=== PATIENT | female | born 1985 | race Caucasian/White ===

== ENCOUNTER 2024-01-08 23:21 | Inpatient (IN) | payer OTHER, SELFPAY ==
[2024-01-08 23:40] VITALS: BP 120/70; PULSE 89; RESP 16; TEMP 36.8; O2SAT 98
[2024-01-09 00:41] VITALS: BMI 23.5
--- NOTE | 2024-01-09 01:24 | PC.ADMIT ---
Sera Vasquez is a 38yo female, admitted to M3 unit from [facility] on CV for treatment of SI, LIN, and Unspecified mood disorder. She present to the [facility] ED after being picked up by police for loitering, found to be disorganized and paranoid.She endorses daily crack cocaine, last use prior to admission. She reports seeing and hearing voices, disorganization, paranoia, and grandiosity. She is pleasant but later became irritable and refused to answer any question during the unit admission assessment/process. She states I am very tired and want to sleep . Pt denies SI/HI/AVH, mood is depressed and affect is flat. Tox screen positive for Cocaine, Fentanyl and THC. Skin check done, release of information forms signed but could not fill my contacts list because she has no phone. Belonging inventory done, treatment plan and safety tools initiated but yet to be signed.
[2024-01-09 08:30] VITALS: BP 119/75; PULSE 81; RESP 16; TEMP 36.8; O2SAT 98
[2024-01-09 08:33] VITALS: BP 119/75; PULSE 81; RESP 16; TEMP 36.8; O2SAT 98
[2024-01-09] MEDS: clonazePAM 1 MG TABLET PO (08:48)
--- NOTE | 2024-01-09 09:34 | P.HPPS_ITS ---
HPI Date of Service: 01/09/24 Chief Complaint: mental health crisis Sources of Information: patient interviewed, chart reviewed and crisis/core team assessment reviewed HPI Subjective Notes: Crooks Warning and Conditional Voluntary Narrative: Patient is a 38 year old female with hx of PTSD, unspecified mood d/o, cocaine use d/o and opioid use d/o who was brought to ER d/t disorganized and paranoid behavior. Per crisis report, pt presented disorganized, admitted to using cocaine the morning of evaluation. Patient was picked up by police d/t loitering around a hotel and presenting paranoid and disorganized. Patient reported some paranoid thinking. She did not report SI/HI. Psychiatric provider in ER believed pt to present with substance induced psychosis. Patient reported hearing and seeing children in her exam room when no one else can. During admission assessment, Pt presents calm and cooperative. Pt stated, I guess I came to the hospital because I wanted to rest and feel at ease. I've been smoking crack heavily for the past couple months because I was able to smoke as much as I wanted to. I still want to smoke crack. I'm not addicted to it. Sometimes the Illuminati comes in me and I get lost and can't remember where I am. But psychiatric units make me sleep and remember . Pt reports using crack, heroin and marijuana often. Pt denies any other substance use currently; she reports hx of using meth for 20 years but don't do it anymore . Pt reports she is not interested in speaking to a soccer coach or going to substance abuse program. Pt reports she does not have an outpatient therapist but would like a referral; she would also like to be sent to respite after discharge. Pt stated, I was never seeing children in the room. I just feel like I want to help everyone and treat them like kids. I don't think I have 100 kids . pt denies SI/HI/VH/AH. pt denies any hx of SIB/SA. Past Psychiatric History: hx of multiple inpatient hospitalizations. Pt stated, I got to the hospital once a month to feel safe . hx of detox. psychiatrist: Nataliya Shrestha denies hx of SA/SIB. Medical Evaluation Reviewed: Yes REPLACED BY [facility] Medical History (Updated 01/09/24 @ 17:08 by Latosha Garrido NP) Chronic musculoskeletal pain ADHD Polysubstance use disorder Family History: Mother-schizophrenia Social History: homeless, single, 3 children (live in [place]), unemployed. Substance History: hx of cocaine, crack, meth, marijuana, heroin use. Trauma History: yes Diagnostics Vital Signs (24Hr): Vital Signs - 24 hr 01/08/24 23:40 01/09/24 08:33 Temperature 98.2 F 98.2 F Pulse Rate 89 81 Respiratory Rate 16 16 Blood Pressure 120/70 119/75 Pulse Oximetry 98 98 Oxygen Delivery Method Room Air Room Air BMI result Body Mass Index 23.5 Meds/Allergies Meds Home Medications ?Medication ?Instructions ?Recorded ?Confirmed ?Type buprenorphine 8 mg-naloxone 2 mg 1 film sublingual BID 01/09/24 01/09/24 History sublingual film (Suboxone) clonazepam 1 mg tablet 1 mg PO TID PRN anxiety 01/09/24 01/09/24 History diphenhydramine HCl 25 mg capsule 25 mg PO BEDTIME PRN itch 01/09/24 01/09/24 History duloxetine 60 mg capsule,delayed 60 mg PO DAILY 01/09/24 01/09/24 History release gabapentin 600 mg tablet 600 mg PO TID 01/09/24 01/09/24 History hydroxyzine pamoate 50 mg capsule 50 mg PO Q6H PRN Anxiety 01/09/24 01/09/24 History naproxen 500 mg tablet 500 mg PO BID 01/09/24 01/09/24 History nicotine 14 mg/24 hr daily 1 patch topical DAILY 01/09/24 01/09/24 History transdermal patch ondansetron HCl 4 mg tablet 4 mg PO Q8H PRN nausea 01/09/24 01/09/24 History paroxetine HCl 40 mg tablet 40 mg PO DAILY 01/09/24 01/09/24 History vits no.130-ferrous fum 1 tab PO DAILY 01/09/24 01/09/24 History 27 mg iron-folic acid 800 mcg tablet ( Vitamin) quetiapine 50 mg tablet 50 mg PO BEDTIME 01/09/24 01/09/24 History Allergies Allergies Allergy/AdvReac Type Severity Reaction Status Date / Time Unable to Assess Allergy Verified 01/08/24 23:44 Mental Status Exam Mental Status Exam Narrative: Pt is alert and oriented; behavior is cooperative and calm; dressed in casual attire; mood is described as okay ; eye contact appropriate; Speech is normal rate, volume and prosody and not pressured; thought process is organized; Thought content is on tx; some delusional thinking, believes the Illuminati goes into me and I get lost and can't remember where I am sometimes .; denies SI/HI/VH/AH. Assessment & Plan Assessment & Plan (1) Psychosis: Status: Acute Code(s): F29 - Unspecified psychosis not due to a substance or known physiological condition (2) PTSD (post-traumatic stress disorder): Status: Acute Code(s): F43.10 - Post-traumatic stress disorder, unspecified (3) Cocaine abuse: Status: Acute Code(s): F14.10 - Cocaine abuse, uncomplicated (4) Opiate use: Status: Acute Code(s): F11.90 - Opioid use, unspecified, uncomplicated Plan Patient is a 38 year old female with hx of PTSD, unspecified mood d/o, cocaine use d/o and opioid use d/o who was brought to ER d/t disorganized and paranoid behavior. Plan: CV 15 minute safety checks Continue home medications Decrease Klonopin to 0.5mg PO BID Increase Seroquel to 75mg PO bedtime Start: Seroquel 25mg PO BID PRN Zyprexa 5mg PO BID Referral to outpatient therapist Encourage sobriety discharge planning Patient educated on: diagnosis, medication risk/benefits and substance abuse Informed Consent: understands and further education needed Reason for continued inpatient stay Substantial Risk for: med/psych decompensation Statement Statement: I have reviewed the history and physical and performed a pertinent examination on my patient. No changes have occurred unless specified. If the History and Physical was not performed prior to admission, the Hospitalist's service will be consulted for completing the admission physical. Time Spent With Patient Time: Total time managing care of this patient today _60___ minutes.
[2024-01-09 09:35] LABS: Estimated Average Glucose 100 mg/dL; Hemoglobin A1c % 5.1 % (<6.0)
[2024-01-09 10:15] LABS: Cholesterol 195 mg/dL (<200); HDL Cholesterol 54 mg/dL (>40); LDL Cholesterol Calculated 113 mg/dL (<100); Triglycerides 141 mg/dL (<150)
[2024-01-09 10:32] LABS: Free T4 (Free Thyroxine) 1.11 ng/dL (0.71-1.85); Thyroid Stimulating Hormone 1.26 uIU/mL (0.32-4.0)
[2024-01-09 10:39] LABS: Vitamin B12 855 pg/mL (200-900)
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
[2024-01-09] MEDS: hydrOXYzine HCL 25 MG TABLET PO (12:21)
[2024-01-09] MEDS: Acetaminophen 325 MG TABLET 650 MG PO (12:21)
[2024-01-09] MEDS: Gabapentin 600 MG TABLET PO ×2 (15:45→21:27)
[2024-01-09] MEDS: clonazePAM 0.5 MG TABLET PO ×2 (15:46→21:27)
[2024-01-09] MEDS: Nicotine 14 MG PATCH.TD24 TRANSDERMA (15:46)
[2024-01-09 21:00] VITALS: BP 131/70; PULSE 96; RESP 16; TEMP 36.4; O2SAT 97
[2024-01-09] MEDS: Buprenorphine/Naloxone 8/2 mg FILM 1 FILM SUBLINGUAL (21:24)
[2024-01-09] MEDS: OLANZapine 5 MG TABLET PO (21:27)
[2024-01-09] MEDS: QUEtiapine Fumarate 25 MG TABLET 75 MG PO (21:28)
[2024-01-10 08:05] VITALS: BP 107/67; PULSE 88; RESP 16; TEMP 36.5; O2SAT 98
[2024-01-10] MEDS: Nicotine 14 MG PATCH.TD24 TRANSDERMA (09:21)
[2024-01-10] MEDS: Buprenorphine/Naloxone 8/2 mg FILM 1 FILM SUBLINGUAL ×2 (09:22→20:33)
[2024-01-10] MEDS: clonazePAM 0.5 MG TABLET PO ×2 (09:22→20:34)
[2024-01-10] MEDS: Gabapentin 600 MG TABLET PO ×3 (09:22→20:34)
[2024-01-10] MEDS: OLANZapine 5 MG TABLET PO ×2 (09:22→20:34)
--- NOTE | 2024-01-10 09:30 | HO.PSYCHPN ---
Subjective Subjective Date of Service: 01/10/24 Reason For Visit: mental health crisis Subjective Notes: 3 Day Interim History: Reviewed with Dr. Ortiz. Pt reports feeling a lot better ; pt stated, I spoke to my sister, they had put a missing person report on me. I didn't realize I am loved . Pt reports she plans on going to [place] after here and trying to find my mother. My sister is going to buy me a bus ticket . Pt denies SI/HI/VH/AH. Pt continues to report she plans on using crack daily; pt stated, when I smoke crack, I feel like it opens up my mind and God allows me to see things . Medication Compliance: Yes Side effects from medications: No Attending Groups: Intermittent Review of Systems Constitutional: Reports as per HPI Eyes: Reports as per HPI Reports as per HPI Cardiovascular: Reports as per HPI Respiratory: Reports as per HPI Gastrointestinal: Reports as per HPI Genitourinary: Reports as per HPI Musculoskeletal: Reports as per HPI Skin/Breast: Reports as per HPI Reports as per HPI Psychiatric: Reports as per HPI Endocrine: Reports as per HPI Hematologic/Lymphatic: Reports as per HPI Allergic/Immunologic: Reports as per HPI Mental Status Exam Mental Status Exam Narrative: Pt is alert and oriented; behavior is cooperative and calm; dressed in casual attire; mood is described as good ; eye contact appropriate; Speech is normal rate, volume and prosody and not pressured; thought process is organized; Thought content is on tx; some delusional thinking, believes God allows her to see things that other people can't see when she smokes crack; denies SI/HI/VH/AH. Diagnostics Vital Signs (24Hr): Vital Signs - 24 hr 01/09/24 21:00 01/10/24 08:05 Temperature 97.6 F 97.7 F Pulse Rate 96 88 Respiratory Rate 16 16 Blood Pressure 131/70 107/67 Pulse Oximetry 97 98 Oxygen Delivery Method Room Air Room Air BMI result Body Mass Index 23.5 Labs Labs: Laboratory Results - last 48 hr 01/09/24 08:52 Estimat Average Glucose 100 Hemoglobin A1c % 5.1 Triglycerides 141 Cholesterol 195 LDL Cholesterol, Calc 113 H HDL Cholesterol 54 Vitamin B12 855 Folate 8.0 TSH 1.26 Free T4 1.11 Medications Medications Current Medications Acetaminophen (Acetaminophen 325 Mg Tablet) 650 mg PO Q6H PRN PRN Reason: Headache/Pain Mild Scale (1-3) Last Admin: 01/09/24 12:21 Dose: 650 mg Al Hydroxide/Mg Hydroxide (Magnesium Hydrox/Alum Hydrox 30 Ml Oral.Susp) 30 ml PO Q6H PRN PRN Reason: Heartburn/Nausea Buprenorphine/Naloxone (Buprenorphine/Naloxone 8/2 Mg Film) 1 film SUBLINGUAL BID [facility] Last Admin: 01/10/24 09:22 Dose: 1 film Clonazepam (Clonazepam 0.5 Mg Tablet) 0.5 mg PO BID [facility] Last Admin: 01/10/24 09:22 Dose: 0.5 mg Cyclobenzaprine HCl (Cyclobenzaprine Hcl 10 Mg Tablet) 10 mg PO BID PRN PRN Reason: Muscle Spasm Gabapentin (Gabapentin 600 Mg Tablet) 600 mg PO TID [facility] Last Admin: 01/10/24 09:22 Dose: 600 mg Hydroxyzine HCl (Hydroxyzine Hcl 50 Mg Tablet) 50 mg PO Q6H PRN PRN Reason: Anxiety Magnesium Hydroxide (Milk Of Magnesia 30 Ml Oral.Susp) 30 ml PO DAILY PRN PRN Reason: Constipation Nicotine (Nicotine 14 Mg Patch.Td24) 14 mg TRANSDERMA DAILY [facility] Last Admin: 01/10/24 09:21 Dose: 14 mg Nicotine Polacrilex (Nicotine Polacrilex 2 Mg Gum) 2 mg BUCCAL Q2H PRN PRN Reason: Nicotine Cravings Olanzapine (Olanzapine 5 Mg Tablet) 5 mg PO BID [facility] Last Admin: 01/10/24 09:22 Dose: 5 mg Quetiapine Fumarate (Quetiapine Fumarate 25 Mg Tablet) 25 mg PO BID PRN PRN Reason: Anxiety Quetiapine Fumarate (Quetiapine Fumarate 25 Mg Tablet) 75 mg PO BEDTIME [facility] Last Admin: 01/09/24 21:28 Dose: 75 mg Trazodone HCl (Trazodone Hcl 50 Mg Tablet) 50 mg PO BEDTIME MRX1 PRN PRN Reason: Insomnia Allergies Allergies Allergy/AdvReac Type Severity Reaction Status Date / Time Unable to Assess Allergy Verified 01/08/24 23:44 Assessment & Plan Assessment & Plan (1) Psychosis: Status: Acute Code(s): F29 - Unspecified psychosis not due to a substance or known physiological condition (2) PTSD (post-traumatic stress disorder): Status: Acute Code(s): F43.10 - Post-traumatic stress disorder, unspecified (3) Cocaine abuse: Status: Acute Code(s): F14.10 - Cocaine abuse, uncomplicated (4) Opiate use: Status: Acute Code(s): F11.90 - Opioid use, unspecified, uncomplicated Plan Patient is a 38 year old female with hx of PTSD, unspecified mood d/o, cocaine use d/o and opioid use d/o who was brought to ER d/t disorganized and paranoid behavior. Plan: CV 15 minute safety checks Continue home medications Decrease Klonopin to 0.5mg PO BID Increase Seroquel to 75mg PO bedtime Start: Seroquel 25mg PO BID PRN Zyprexa 5mg PO BID Referral to outpatient therapist Encourage sobriety discharge planning 01/09: Pt reports feeling a lot better ; pt stated, I spoke to my sister, they had put a missing person report on me. I didn't realize I am loved . Pt reports she plans on going to [place] after here and trying to find my mother. My sister is going to buy me a bus ticket . Pt denies SI/HI/VH/AH. Pt continues to report she plans on using crack daily; pt stated, when I smoke crack, I feel like it opens up my mind and God allows me to see things . Pt requesting labs for STDs, HIV and Hepatitis. Continue current tx plan. Patient educated on: diagnosis, medication risk/benefits and substance abuse Informed Consent: understands Reason for continued inpatient stay Substantial Risk for: med/psych decompensation Time Spent With Patient Time: Total time managing care of this patient today _20___ minutes.
[2024-01-10] MEDS: Acetaminophen 325 MG TABLET 650 MG PO (12:57)
[2024-01-10] MEDS: hydrOXYzine HCL 50 MG TABLET PO (12:57)
[2024-01-10 20:15] VITALS: BP 123/73; PULSE 94; RESP 18; TEMP 37.3; O2SAT 97
[2024-01-10] MEDS: QUEtiapine Fumarate 25 MG TABLET 75 MG PO (20:33)
[2024-01-11 02:20] LABS: CT PCR NOT DETECTED (Not Detect.); NG PCR DETECTED (Not Detect.)
[2024-01-11 03:52] LABS: Syphilis Screen Nonreactive (Nonreactive)
[2024-01-11 04:09] LABS: HBS Num1 25.63 mIU/mL (0-7.99); HBc Num1 0.75 S/CO (0.00-0.79); HBsAGNum1 0.25 S/CO (0.00-0.99); HIV AB/AG Nonreactive (Nonreactive); HIV Num 1 0.06 S/CO (0.00-0.99); Hepatitis A Antibody IgM 0.18 Index (0-0.79); Hepatitis B Core Antibody Nonreactive (Nonreactive); Hepatitis B Surface Antigen Negative (Negative); ~HepC Num1 0.16 S/CO (0.00-0.79); ~Hepatitis A Antibody IgM Nonreactive (Nonreactive); ~Hepatitis B Surface Antibody REACTIVE (Nonreactive); ~Hepatitis C Antibody Nonreactive (Nonreactive)
[2024-01-11 07:25] VITALS: BP 104/55; PULSE 95; RESP 16; TEMP 36.4; O2SAT 95
[2024-01-11] MEDS: Nicotine 14 MG PATCH.TD24 TRANSDERMA (09:19)
[2024-01-11] MEDS: Buprenorphine/Naloxone 8/2 mg FILM 1 FILM SUBLINGUAL ×2 (09:20→20:25)
[2024-01-11] MEDS: Gabapentin 600 MG TABLET PO (09:20)
[2024-01-11] MEDS: OLANZapine 5 MG TABLET PO ×2 (09:20→20:24)
[2024-01-11] MEDS: clonazePAM 0.5 MG TABLET PO ×2 (09:20→20:25)
[2024-01-11] MEDS: Acetaminophen 325 MG TABLET 650 MG PO ×2 (09:34→18:37)
--- NOTE | 2024-01-11 11:37 | P.PNPSI_ITS ---
Subjective Subjective Date of Service: 01/11/24 Reason For Visit: mental health crisis Interim History: Met with patient. Discussed with Nursing. Also sign-out noted Klonopin lowered from 1 mg twice daily to 0.5 mg twice daily with a view to not making any further changes. Patient reports today feeling very frustrated that Klonopin dose was changed and feels this was not communicated. Reports that it makes her feel depressed and angry and not want to participate in treatment. A lso reports that she wants to feel better. Intermittent thoughts of . No active SI. No psychosis. Seroquel at bedtime is causing her to feel sedate and we will therefore lower dose. Is prescribed gabapentin and will increase this to 800 mg 3 times per day for anxiety and also nerve pain. Lab testing, gonorrhea positive. Medication Compliance: Yes Side effects from medications: No Attending Groups: Intermittent Review of Systems Acute medical concerns: No Mental Status Exam Mental Status Exam Narrative: Casually dressed. Self-care okay. Is engaged. Frustrated around medication changes. Overall reasonably pleasant with minimal irritability. Does endorse feeling depressed and anxious. Thoughts of . No active SI. No HI. No psychosis. Insight and judgment fair. Diagnostics Vital Signs (24Hr): Vital Signs - 24 hr 01/10/24 20:15 01/11/24 07:25 Temperature 99.1 F 97.6 F Pulse Rate 94 95 Respiratory Rate 18 16 Blood Pressure 123/73 104/55 L Pulse Oximetry 97 95 Oxygen Delivery Method Room Air Room Air BMI result Body Mass Index 23.5 Labs Labs: Laboratory Results - last 48 hr 01/10/24 01/10/24 15:17 18:50 T.pallidum Ab (EIA) Nonreactive Chlam trachomat DNA PCR NOT DETECTED Hepatitis A IgM Ab Nonreactive Hep Bs Antigen Negative Hep Bs Antibody REACTIVE Hep B Core Total Ab Nonreactive Hepatitis C Ab (EIA) Nonreactive HIV 1&2 Ab/P24 Ag 4thGn Nonreactive N.gonorrhoeae DNA (PCR) DETECTED A Medications Medications Current Medications Acetaminophen (Acetaminophen 325 Mg Tablet) 650 mg PO Q6H PRN PRN Reason: Headache/Pain Mild Scale (1-3) Last Admin: 01/11/24 09:34 Dose: 650 mg Al Hydroxide/Mg Hydroxide (Magnesium Hydrox/Alum Hydrox 30 Ml Oral.Susp) 30 ml PO Q6H PRN PRN Reason: Heartburn/Nausea Buprenorphine/Naloxone (Buprenorphine/Naloxone 8/2 Mg Film) 1 film SUBLINGUAL BID [facility] Last Admin: 01/11/24 09:20 Dose: 1 film Clonazepam (Clonazepam 0.5 Mg Tablet) 0.5 mg PO BID [facility] Last Admin: 01/11/24 09:20 Dose: 0.5 mg Cyclobenzaprine HCl (Cyclobenzaprine Hcl 10 Mg Tablet) 10 mg PO BID PRN PRN Reason: Muscle Spasm Gabapentin (Gabapentin 600 Mg Tablet) 600 mg PO TID [facility] Last Admin: 01/11/24 09:20 Dose: 600 mg Hydroxyzine HCl (Hydroxyzine Hcl 50 Mg Tablet) 50 mg PO Q6H PRN PRN Reason: Anxiety Last Admin: 01/10/24 12:57 Dose: 50 mg Magnesium Hydroxide (Milk Of Magnesia 30 Ml Oral.Susp) 30 ml PO DAILY PRN PRN Reason: Constipation Nicotine (Nicotine 14 Mg Patch.Td24) 14 mg TRANSDERMA DAILY [facility] Last Admin: 01/11/24 09:19 Dose: 14 mg Nicotine Polacrilex (Nicotine Polacrilex 2 Mg Gum) 2 mg BUCCAL Q2H PRN PRN Reason: Nicotine Cravings Olanzapine (Olanzapine 5 Mg Tablet) 5 mg PO BID [facility] Last Admin: 01/11/24 09:20 Dose: 5 mg Quetiapine Fumarate (Quetiapine Fumarate 25 Mg Tablet) 25 mg PO BID PRN PRN Reason: Anxiety Quetiapine Fumarate (Quetiapine Fumarate 25 Mg Tablet) 75 mg PO BEDTIME [facility] Last Admin: 01/10/24 20:33 Dose: 75 mg Trazodone HCl (Trazodone Hcl 50 Mg Tablet) 50 mg PO BEDTIME MRX1 PRN PRN Reason: Insomnia Allergies Allergies Allergy/AdvReac Type Severity Reaction Status Date / Time Unable to Assess Allergy Verified 01/08/24 23:44 Assessment & Plan Assessment & Plan (1) Psychosis: Status: Acute Code(s): F29 - Unspecified psychosis not due to a substance or known physiological condition (2) PTSD (post-traumatic stress disorder): Status: Acute Code(s): F43.10 - Post-traumatic stress disorder, unspecified (3) Cocaine abuse: Status: Acute Code(s): F14.10 - Cocaine abuse, uncomplicated (4) Opiate use: Status: Acute Code(s): F11.90 - Opioid use, unspecified, uncomplicated Plan Patient is a 38 year old female with hx of PTSD, unspecified mood d/o, cocaine use d/o and opioid use d/o who was brought to ER d/t disorganized and paranoid behavior. Plan: CV 15 minute safety checks Continue home medications Decrease Klonopin to 0.5mg PO BID Increase Seroquel to 75mg PO bedtime Start: Seroquel 25mg PO BID PRN Zyprexa 5mg PO BID Referral to outpatient therapist Encourage sobriety discharge planning 01/09: Pt reports feeling a lot better ; pt stated, I spoke to my sister, they had put a missing person report on me. I didn't realize I am loved . Pt reports she plans on going to [place] after here and trying to find my mother. My sister is going to buy me a bus ticket . Pt denies SI/HI/VH/AH. Pt continues to report she plans on using crack daily; pt stated, when I smoke crack, I feel like it opens up my mind and God allows me to see things . Pt requesting labs for STDs, HIV and Hepatitis. Continue current tx plan. 01/10: Maintain Klonopin 0.5 twice daily as per team. Will adjust gabapentin to 800 mg 3 times per day. Also ceftriaxone 500 mg IM 1 time dose for gonorrhea. Reason for continued inpatient stay Substantial Risk for: harm to self Time Spent With Patient Time: Total time managing care of this patient today ____ minutes.
[2024-01-11] MEDS: cefTRIAXone sodium 500 MG VIAL IM (16:08)
[2024-01-11] MEDS: Gabapentin 400 MG CAPSULE 800 MG PO ×2 (16:20→20:24)
[2024-01-11] MEDS: QUEtiapine Fumarate 25 MG TABLET PO (18:37)
[2024-01-11 20:10] VITALS: BP 121/80; PULSE 108; RESP 18; TEMP 36.3; O2SAT 93
[2024-01-11] MEDS: Milk of Magnesia 30 ML ORAL.SUSP PO (20:24)
[2024-01-11] MEDS: QUEtiapine Fumarate 50 MG TABLET PO (20:25)
[2024-01-12 06:00] VITALS: BP 116/61; PULSE 89; RESP 14; TEMP 36.8; O2SAT 95
[2024-01-12] MEDS: OLANZapine 5 MG TABLET PO ×2 (08:30→20:45)
[2024-01-12] MEDS: clonazePAM 0.5 MG TABLET PO ×2 (08:30→20:45)
[2024-01-12] MEDS: Nicotine 14 MG PATCH.TD24 TRANSDERMA (08:30)
[2024-01-12] MEDS: Gabapentin 400 MG CAPSULE 800 MG PO ×3 (08:30→20:45)
[2024-01-12] MEDS: Buprenorphine/Naloxone 8/2 mg FILM 1 FILM SUBLINGUAL ×2 (08:30→20:44)
--- NOTE | 2024-01-12 11:39 | P.PNPSI_ITS ---
Subjective Subjective Date of Service: 01/12/24 Reason For Visit: mental health crisis Interim History: Met with patient. Discussed with Nursing. continues to report feeling very frustrated that Klonopin dose was changed and feels this was not communicated. Communicates it makes her feel depressed and angry and not want to participate in treatment. Feels she needs to be back on stimulants for ADD. Also wants a change in provider. Intermittent thoughts of . No active SI. No psychosis. Reports wanting to feel better and ultimately get off [address] . Medication Compliance: Yes Side effects from medications: No Attending Groups: Intermittent Review of Systems Acute medical concerns: No Review of Systems Review of Systems nothing acute Mental Status Exam Mental Status Exam Narrative: Casually dressed. Self-care okay. Is engaged. Frustrated around medication changes. Overall reasonably pleasant with minimal irritability. Does endorse feeling depressed and anxious. Thoughts of . No active SI. No HI. No psychosis. Insight and judgment fair. Diagnostics Vital Signs (24Hr): Vital Signs - 24 hr 01/11/24 20:10 01/12/24 06:00 Temperature 97.3 F 98.2 F Pulse Rate 108 H 89 Respiratory Rate 18 14 Blood Pressure 121/80 116/61 Pulse Oximetry 93 95 Oxygen Delivery Method Room Air Room Air BMI result Body Mass Index 23.5 Labs Labs: Laboratory Results - last 48 hr 01/10/24 01/10/24 15:17 18:50 T.pallidum Ab (EIA) Nonreactive Chlam trachomat DNA PCR NOT DETECTED Hepatitis A IgM Ab Nonreactive Hep Bs Antigen Negative Hep Bs Antibody REACTIVE Hep B Core Total Ab Nonreactive Hepatitis C Ab (EIA) Nonreactive HIV 1&2 Ab/P24 Ag 4thGn Nonreactive N.gonorrhoeae DNA (PCR) DETECTED A Medications Medications Current Medications Acetaminophen (Acetaminophen 325 Mg Tablet) 650 mg PO Q6H PRN PRN Reason: Headache/Pain Mild Scale (1-3) Last Admin: 01/11/24 18:37 Dose: 650 mg Al Hydroxide/Mg Hydroxide (Magnesium Hydrox/Alum Hydrox 30 Ml Oral.Susp) 30 ml PO Q6H PRN PRN Reason: Heartburn/Nausea Buprenorphine/Naloxone (Buprenorphine/Naloxone 8/2 Mg Film) 1 film SUBLINGUAL BID [facility] Last Admin: 01/12/24 08:30 Dose: 1 film Clonazepam (Clonazepam 0.5 Mg Tablet) 0.5 mg PO BID [facility] Last Admin: 01/12/24 08:30 Dose: 0.5 mg Cyclobenzaprine HCl (Cyclobenzaprine Hcl 10 Mg Tablet) 10 mg PO BID PRN PRN Reason: Muscle Spasm Gabapentin (Gabapentin 400 Mg Capsule) 800 mg PO TID [facility] Last Admin: 01/12/24 08:30 Dose: 800 mg Hydroxyzine HCl (Hydroxyzine Hcl 50 Mg Tablet) 50 mg PO Q6H PRN PRN Reason: Anxiety Last Admin: 01/10/24 12:57 Dose: 50 mg Magnesium Hydroxide (Milk Of Magnesia 30 Ml Oral.Susp) 30 ml PO DAILY PRN PRN Reason: Constipation Last Admin: 01/11/24 20:24 Dose: 30 ml Nicotine (Nicotine 14 Mg Patch.Td24) 14 mg TRANSDERMA DAILY [facility] Last Admin: 01/12/24 08:30 Dose: 14 mg Nicotine Polacrilex (Nicotine Polacrilex 2 Mg Gum) 2 mg BUCCAL Q2H PRN PRN Reason: Nicotine Cravings Olanzapine (Olanzapine 5 Mg Tablet) 5 mg PO BID [facility] Last Admin: 01/12/24 08:30 Dose: 5 mg Quetiapine Fumarate (Quetiapine Fumarate 25 Mg Tablet) 25 mg PO BID PRN PRN Reason: Anxiety Last Admin: 01/11/24 18:37 Dose: 25 mg Quetiapine Fumarate (Quetiapine Fumarate 50 Mg Tablet) 50 mg PO BEDTIME [facility] Last Admin: 01/11/24 20:25 Dose: 50 mg Trazodone HCl (Trazodone Hcl 50 Mg Tablet) 50 mg PO BEDTIME MRX1 PRN PRN Reason: Insomnia Allergies Allergies Allergy/AdvReac Type Severity Reaction Status Date / Time Unable to Assess Allergy Verified 01/08/24 23:44 Assessment & Plan Assessment & Plan (1) Psychosis: Status: Acute Code(s): F29 - Unspecified psychosis not due to a substance or known physiological condition (2) PTSD (post-traumatic stress disorder): Status: Acute Code(s): F43.10 - Post-traumatic stress disorder, unspecified (3) Cocaine abuse: Status: Acute Code(s): F14.10 - Cocaine abuse, uncomplicated (4) Opiate use: Status: Acute Code(s): F11.90 - Opioid use, unspecified, uncomplicated Plan Patient is a 38 year old female with hx of PTSD, unspecified mood d/o, cocaine use d/o and opioid use d/o who was brought to ER d/t disorganized and paranoid behavior. Plan: CV 15 minute safety checks Continue home medications Decrease Klonopin to 0.5mg PO BID Increase Seroquel to 75mg PO bedtime Start: Seroquel 25mg PO BID PRN Zyprexa 5mg PO BID Referral to outpatient therapist Encourage sobriety discharge planning 01/09: Pt reports feeling a lot better ; pt stated, I spoke to my sister, they had put a missing person report on me. I didn't realize I am loved . Pt reports she plans on going to [place] after here and trying to find my mother. My sister is going to buy me a bus ticket . Pt denies SI/HI/VH/AH. Pt continues to report she plans on using crack daily; pt stated, when I smoke crack, I feel like it opens up my mind and God allows me to see things . Pt requesting labs for STDs, HIV and Hepatitis. Continue current tx plan. 01/10: Maintain Klonopin 0.5 twice daily as per team. Will adjust gabapentin to 800 mg 3 times per day. Also ceftriaxone 500 mg IM 1 time dose for gonorrhea. 01/11: no changes Reason for continued inpatient stay Substantial Risk for: rapid decompensation Time Spent With Patient Time: Total time managing care of this patient today ____ minutes.
[2024-01-12] MEDS: Cyclobenzaprine HCl 10 MG TABLET PO (12:48)
[2024-01-12] MEDS: hydrOXYzine HCL 50 MG TABLET PO (12:49)
[2024-01-12] MEDS: QUEtiapine Fumarate 25 MG TABLET PO (16:47)
[2024-01-12] MEDS: Acetaminophen 325 MG TABLET 650 MG PO (18:35)
[2024-01-12 20:30] VITALS: BP 138/68; PULSE 98; RESP 16; TEMP 37; O2SAT 97
[2024-01-12] MEDS: QUEtiapine Fumarate 50 MG TABLET PO (20:44)
[2024-01-13 07:24] VITALS: BP 110/59; PULSE 81; RESP 14; TEMP 36.9; O2SAT 95
[2024-01-13] MEDS: Gabapentin 400 MG CAPSULE 800 MG PO ×3 (08:57→20:01)
[2024-01-13] MEDS: clonazePAM 0.5 MG TABLET PO ×2 (08:57→20:01)
[2024-01-13] MEDS: OLANZapine 5 MG TABLET PO ×2 (08:58→20:02)
[2024-01-13] MEDS: Nicotine 14 MG PATCH.TD24 TRANSDERMA (08:58)
[2024-01-13] MEDS: Buprenorphine/Naloxone 8/2 mg FILM 1 FILM SUBLINGUAL ×2 (08:58→20:01)
[2024-01-13] MEDS: hydrOXYzine HCL 50 MG TABLET PO ×2 (10:47→20:00)
--- NOTE | 2024-01-13 10:50 | P.PNPSI_ITS ---
Subjective Subjective Date of Service: 01/13/24 Reason For Visit: mental health crisis Subjective Notes: Conditional Voluntary Interim History: Pt reports sleeping well. Advised to speak with primary provider about clonazepam dose decrease. It does appaer she is not connected with OP psych provider. We briefly discuss risks versus benefits of adding conrol substance as she continues to work on her recovery. She asks for medication for ADHD- again discuss risks versus benefits as she continues to work on recovery. Lastly she reports feeling very anxious but affect much calmer and brighter than reported mood. Review of Systems Review of Systems nothing acute Constitutional: Reports as per HPI Eyes: Reports as per HPI Reports as per HPI Cardiovascular: Reports as per HPI Respiratory: Reports as per HPI Gastrointestinal: Reports as per HPI Musculoskeletal: Reports as per HPI Skin/Breast: Reports as per HPI Reports as per HPI Psychiatric: Reports as per HPI Endocrine: Reports as per HPI Hematologic/Lymphatic: Reports as per HPI Allergic/Immunologic: Reports as per HPI Mental Status Exam Mental Status Exam Narrative: Casually dressed. Self-care okay. Is engaged. Frustrated around medication changes. Overall reasonably pleasant with minimal irritability. Does endorse feeling depressed and anxious. Thoughts of . No active SI. No HI. No psychosis. Insight and judgment fair. Diagnostics Vital Signs (24Hr): Vital Signs - 24 hr 01/12/24 20:30 01/13/24 07:24 Temperature 98.6 F 98.5 F Pulse Rate 98 81 Respiratory Rate 16 14 Blood Pressure 138/68 110/59 L Pulse Oximetry 97 95 Oxygen Delivery Method Room Air Room Air BMI result Body Mass Index 23.5 Medications Medications Current Medications Acetaminophen (Acetaminophen 325 Mg Tablet) 650 mg PO Q6H PRN PRN Reason: Headache/Pain Mild Scale (1-3) Last Admin: 01/12/24 18:35 Dose: 650 mg Al Hydroxide/Mg Hydroxide (Magnesium Hydrox/Alum Hydrox 30 Ml Oral.Susp) 30 ml PO Q6H PRN PRN Reason: Heartburn/Nausea Buprenorphine/Naloxone (Buprenorphine/Naloxone 8/2 Mg Film) 1 film SUBLINGUAL BID [facility] Last Admin: 01/13/24 08:58 Dose: 1 film Clonazepam (Clonazepam 0.5 Mg Tablet) 0.5 mg PO BID [facility] Last Admin: 01/13/24 08:57 Dose: 0.5 mg Cyclobenzaprine HCl (Cyclobenzaprine Hcl 10 Mg Tablet) 10 mg PO BID PRN PRN Reason: Muscle Spasm Last Admin: 01/12/24 12:48 Dose: 10 mg Gabapentin (Gabapentin 400 Mg Capsule) 800 mg PO TID [facility] Last Admin: 01/13/24 08:57 Dose: 800 mg Hydroxyzine HCl (Hydroxyzine Hcl 50 Mg Tablet) 50 mg PO Q6H PRN PRN Reason: Anxiety Last Admin: 01/13/24 10:47 Dose: 50 mg Magnesium Hydroxide (Milk Of Magnesia 30 Ml Oral.Susp) 30 ml PO DAILY PRN PRN Reason: Constipation Last Admin: 01/11/24 20:24 Dose: 30 ml Nicotine (Nicotine 14 Mg Patch.Td24) 14 mg TRANSDERMA DAILY [facility] Last Admin: 01/13/24 08:58 Dose: 14 mg Nicotine Polacrilex (Nicotine Polacrilex 2 Mg Gum) 2 mg BUCCAL Q2H PRN PRN Reason: Nicotine Cravings Olanzapine (Olanzapine 5 Mg Tablet) 5 mg PO BID [facility] Last Admin: 01/13/24 08:58 Dose: 5 mg Quetiapine Fumarate (Quetiapine Fumarate 25 Mg Tablet) 25 mg PO BID PRN PRN Reason: Anxiety Last Admin: 01/12/24 16:47 Dose: 25 mg Quetiapine Fumarate (Quetiapine Fumarate 50 Mg Tablet) 50 mg PO BEDTIME [facility] Last Admin: 01/12/24 20:44 Dose: 50 mg Trazodone HCl (Trazodone Hcl 50 Mg Tablet) 50 mg PO BEDTIME MRX1 PRN PRN Reason: Insomnia Allergies Allergies Allergy/AdvReac Type Severity Reaction Status Date / Time Unable to Assess Allergy Verified 01/08/24 23:44 Assessment & Plan Assessment & Plan (1) Psychosis: Status: Acute Code(s): F29 - Unspecified psychosis not due to a substance or known physiological condition (2) PTSD (post-traumatic stress disorder): Status: Acute Code(s): F43.10 - Post-traumatic stress disorder, unspecified (3) Cocaine abuse: Status: Acute Code(s): F14.10 - Cocaine abuse, uncomplicated (4) Opiate use: Status: Acute Code(s): F11.90 - Opioid use, unspecified, uncomplicated Plan Patient is a 38 year old female with hx of PTSD, unspecified mood d/o, cocaine use d/o and opioid use d/o who was brought to ER d/t disorganized and paranoid behavior. Plan: CV 15 minute safety checks Continue home medications Decrease Klonopin to 0.5mg PO BID Increase Seroquel to 75mg PO bedtime Start: Seroquel 25mg PO BID PRN Zyprexa 5mg PO BID Referral to outpatient therapist Encourage sobriety discharge planning 01/09: Pt reports feeling a lot better ; pt stated, I spoke to my sister, they had put a missing person report on me. I didn't realize I am loved . Pt reports she plans on going to [place] after here and trying to find my mother. My sister is going to buy me a bus ticket . Pt denies SI/HI/VH/AH. Pt continues to report she plans on using crack daily; pt stated, when I smoke crack, I feel like it opens up my mind and God allows me to see things . Pt requesting labs for STDs, HIV and Hepatitis. Continue current tx plan. 01/10: Maintain Klonopin 0.5 twice daily as per team. Will adjust gabapentin to 800 mg 3 times per day. Also ceftriaxone 500 mg IM 1 time dose for gonorrhea. 01/11: no changes 01/12 continue tx. Reason for continued inpatient stay Substantial Risk for: inability to function Time Spent With Patient Time: Total time managing care of this patient today ____ minutes.
[2024-01-13] MEDS: Acetaminophen 325 MG TABLET 650 MG PO (11:17)
[2024-01-13] MEDS: Cyclobenzaprine HCl 10 MG TABLET PO (11:17)
[2024-01-13] MEDS: QUEtiapine Fumarate 25 MG TABLET PO (11:20)
[2024-01-13 19:40] VITALS: BP 133/66; PULSE 103; RESP 18; TEMP 36.8; O2SAT 96
[2024-01-13] MEDS: QUEtiapine Fumarate 50 MG TABLET PO (20:00)
[2024-01-14 07:30] VITALS: BP 104/59; PULSE 82; RESP 16; TEMP 36.4; O2SAT 95
[2024-01-14] MEDS: Nicotine 14 MG PATCH.TD24 TRANSDERMA (08:05)
[2024-01-14] MEDS: clonazePAM 0.5 MG TABLET PO ×2 (08:06→20:30)
[2024-01-14] MEDS: Gabapentin 400 MG CAPSULE 800 MG PO ×3 (08:06→20:30)
[2024-01-14] MEDS: Buprenorphine/Naloxone 8/2 mg FILM 1 FILM SUBLINGUAL ×2 (08:06→20:30)
[2024-01-14] MEDS: OLANZapine 5 MG TABLET PO ×2 (08:06→20:30)
--- NOTE | 2024-01-14 08:49 | HO.PSYCHPN ---
Subjective Subjective Date of Service: 01/14/24 Reason For Visit: mental health crisis Subjective Notes: 3 Day Interim History: Reviewed with Dr. Ortiz. 3 day notice is up tomorrow. Pt reports feeling depressed that my klonopin was decreased ; T/W reminded pt of the conversation that was had on admission regarding her substance use and sedation. Pt reports not taking 2mg of klonopin a day makes me sad ; pt was educated regarding her medications. Pt remains focused on wanting dose increased. Pt requested to have hydroxyainze discontinued and started on Clonidine. pt denies SI/HI/VH/AH. Pt continues to report she plans on continuing to use crack when discharged. Plan to discharge pt tomorrow on 3 day. DC hydroxyzine. Start: clonidine 0.1mg PO BID PRN Medication Compliance: Yes Side effects from medications: No Attending Groups: Intermittent Review of Systems Constitutional: Reports as per HPI Eyes: Reports as per HPI Reports as per HPI Cardiovascular: Reports as per HPI Respiratory: Reports as per HPI Gastrointestinal: Reports as per HPI Genitourinary: Reports as per HPI Musculoskeletal: Reports as per HPI Skin/Breast: Reports as per HPI Reports as per HPI Psychiatric: Reports as per HPI Endocrine: Reports as per HPI Hematologic/Lymphatic: Reports as per HPI Allergic/Immunologic: Reports as per HPI Mental Status Exam Mental Status Exam Narrative: Pt is alert and oriented; behavior is cooperative and calm; dressed in casual attire; mood is described as sad about my klonopin ; eye contact appropriate; Speech is normal rate, volume and prosody and not pressured; thought process is organized and goal directed; Thought content is on tx; denies SI/HI/VH/AH. Diagnostics Vital Signs (24Hr): Vital Signs - 24 hr 01/13/24 19:40 01/14/24 07:30 Temperature 98.3 F 97.6 F Pulse Rate 103 H 82 Respiratory Rate 18 16 Blood Pressure 133/66 104/59 L Pulse Oximetry 96 95 Oxygen Delivery Method Room Air Room Air BMI result Body Mass Index 23.5 Medications Medications Current Medications Acetaminophen (Acetaminophen 325 Mg Tablet) 650 mg PO Q6H PRN PRN Reason: Headache/Pain Mild Scale (1-3) Last Admin: 01/13/24 11:17 Dose: 650 mg Al Hydroxide/Mg Hydroxide (Magnesium Hydrox/Alum Hydrox 30 Ml Oral.Susp) 30 ml PO Q6H PRN PRN Reason: Heartburn/Nausea Buprenorphine/Naloxone (Buprenorphine/Naloxone 8/2 Mg Film) 1 film SUBLINGUAL BID [facility] Last Admin: 01/14/24 08:06 Dose: 1 film Clonazepam (Clonazepam 0.5 Mg Tablet) 0.5 mg PO BID [facility] Last Admin: 01/14/24 08:06 Dose: 0.5 mg Cyclobenzaprine HCl (Cyclobenzaprine Hcl 10 Mg Tablet) 10 mg PO BID PRN PRN Reason: Muscle Spasm Last Admin: 01/13/24 11:17 Dose: 10 mg Gabapentin (Gabapentin 400 Mg Capsule) 800 mg PO TID [facility] Last Admin: 01/14/24 08:06 Dose: 800 mg Hydroxyzine HCl (Hydroxyzine Hcl 50 Mg Tablet) 50 mg PO Q6H PRN PRN Reason: Anxiety Last Admin: 01/13/24 20:00 Dose: 50 mg Magnesium Hydroxide (Milk Of Magnesia 30 Ml Oral.Susp) 30 ml PO DAILY PRN PRN Reason: Constipation Last Admin: 01/11/24 20:24 Dose: 30 ml Nicotine (Nicotine 14 Mg Patch.Td24) 14 mg TRANSDERMA DAILY [facility] Last Admin: 01/14/24 08:05 Dose: 14 mg Nicotine Polacrilex (Nicotine Polacrilex 2 Mg Gum) 2 mg BUCCAL Q2H PRN PRN Reason: Nicotine Cravings Olanzapine (Olanzapine 5 Mg Tablet) 5 mg PO BID [facility] Last Admin: 01/14/24 08:06 Dose: 5 mg Quetiapine Fumarate (Quetiapine Fumarate 25 Mg Tablet) 25 mg PO BID PRN PRN Reason: Anxiety Last Admin: 01/13/24 11:20 Dose: 25 mg Quetiapine Fumarate (Quetiapine Fumarate 50 Mg Tablet) 50 mg PO BEDTIME [facility] Last Admin: 01/13/24 20:00 Dose: 50 mg Trazodone HCl (Trazodone Hcl 50 Mg Tablet) 50 mg PO BEDTIME MRX1 PRN PRN Reason: Insomnia Allergies Allergies Allergy/AdvReac Type Severity Reaction Status Date / Time Unable to Assess Allergy Verified 01/08/24 23:44 Assessment & Plan Assessment & Plan (1) Psychosis: Status: Acute Code(s): F29 - Unspecified psychosis not due to a substance or known physiological condition (2) PTSD (post-traumatic stress disorder): Status: Acute Code(s): F43.10 - Post-traumatic stress disorder, unspecified (3) Cocaine abuse: Status: Acute Code(s): F14.10 - Cocaine abuse, uncomplicated (4) Opiate use: Status: Acute Code(s): F11.90 - Opioid use, unspecified, uncomplicated Plan Patient is a 38 year old female with hx of PTSD, unspecified mood d/o, cocaine use d/o and opioid use d/o who was brought to ER d/t disorganized and paranoid behavior. Plan: CV 15 minute safety checks Continue home medications Decrease Klonopin to 0.5mg PO BID Increase Seroquel to 75mg PO bedtime Start: Seroquel 25mg PO BID PRN Zyprexa 5mg PO BID Referral to outpatient therapist Encourage sobriety discharge planning 01/09: Pt reports feeling a lot better ; pt stated, I spoke to my sister, they had put a missing person report on me. I didn't realize I am loved . Pt reports she plans on going to [place] after here and trying to find my mother. My sister is going to buy me a bus ticket . Pt denies SI/HI/VH/AH. Pt continues to report she plans on using crack daily; pt stated, when I smoke crack, I feel like it opens up my mind and God allows me to see things . Pt requesting labs for STDs, HIV and Hepatitis. Continue current tx plan. 01/10: Maintain Klonopin 0.5 twice daily as per team. Will adjust gabapentin to 800 mg 3 times per day. Also ceftriaxone 500 mg IM 1 time dose for gonorrhea. 01/11: no changes 01/12 continue tx. 01/13: 3 day notice is up tomorrow. Pt reports feeling depressed that my klonopin was decreased ; T/W reminded pt of the conversation that was had on admission regarding her substance use and sedation. Pt reports not taking 2mg of klonopin a day makes me sad ; pt was educated regarding her medications. Pt remains focused on wanting dose increased. Pt requested to have hydroxyainze discontinued and started on Clonidine. pt denies SI/HI/VH/AH. Pt continues to report she plans on continuing to use crack when discharged. Plan to discharge pt tomorrow on 3 day. DC hydroxyzine. Start: clonidine 0.1mg PO BID PRN Patient educated on: diagnosis, medication risk/benefits, substance abuse and therapeutic strategies Informed Consent: understands Reason for continued inpatient stay Substantial Risk for: stable for discharge Time Spent With Patient Time: Total time managing care of this patient today _20___ minutes.
[2024-01-14] MEDS: QUEtiapine Fumarate 25 MG TABLET PO (14:09)
[2024-01-14] MEDS: Cyclobenzaprine HCl 10 MG TABLET PO (14:09)
[2024-01-14] MEDS: hydrOXYzine HCL 50 MG TABLET PO (14:10)
[2024-01-14 17:29] VITALS: BP 124/60
[2024-01-14] MEDS: cloNIDine HCL 0.1 MG TABLET PO (17:29)
[2024-01-14 19:35] VITALS: BP 116/64; PULSE 96; RESP 16; TEMP 36.9; O2SAT 96
[2024-01-14] MEDS: QUEtiapine Fumarate 50 MG TABLET PO (20:30)
[2024-01-15 06:00] VITALS: BP 110/59; PULSE 95; RESP 14; TEMP 36.4; O2SAT 95
[2024-01-15] MEDS: Buprenorphine/Naloxone 8/2 mg FILM 1 FILM SUBLINGUAL (08:36)
[2024-01-15] MEDS: Nicotine 14 MG PATCH.TD24 TRANSDERMA (08:36)
[2024-01-15] MEDS: clonazePAM 0.5 MG TABLET PO (08:37)
[2024-01-15] MEDS: OLANZapine 5 MG TABLET PO (08:37)
[2024-01-15] MEDS: Gabapentin 400 MG CAPSULE 800 MG PO (08:37)
[2024-01-15] MEDS: Naloxone HCl Nasal TAKE HOME 4 MG SPRAY 8 MG NOSTRILALT (08:39)
--- NOTE | 2024-01-15 09:13 | P.DS_ITS ---
DS: Providers Provider Date of Service: 01/15/24 Date of admission: 01/08/24 23:21 Date of discharge: 01/15/24 Primary care physician: Unknown Physician Admitting clinician: Latosha Garrido Attending physician on admission: Trevon Ortiz Consults: 01/08/24 23:44 Consult to Hospitalist Routine Comment: Consulting Provider: Hospitalist Reason For Exam: OSH admission Attending physician on discharge: Trevon Ortiz Discharging clinician: Latosha Garrido DS: Diagnosis Discharge Diagnosis (1) Psychosis: Status: Acute (2) PTSD (post-traumatic stress disorder): Status: Acute (3) Cocaine abuse: Status: Acute (4) Opiate use: Status: Acute DS: Medications Discharge Medications Home Medications: Home Medications ?Medication ?Instructions ?Recorded ?Confirmed buprenorphine 8 mg-naloxone 2 mg 1 film sublingual BID 01/09/24 01/09/24 sublingual film (Suboxone) vits no.130-ferrous fum 1 tab PO DAILY 01/09/24 01/09/24 27 mg iron-folic acid 800 mcg tablet ( Vitamin) Previous Rx's ?Medication ?Instructions ?Recorded clonazepam 0.5 mg tablet 0.5 mg PO BID 7 days #14 tabs 01/14/24 clonidine HCl 0.1 mg tablet 0.1 mg PO BID PRN 01/14/24 Anxiety/Restlessness 14 days #28 tabs gabapentin 800 mg tablet 800 mg PO TID 30 days #90 tabs 01/14/24 nicotine 14 mg/24 hr daily 14 mg transdermal DAILY 30 days 01/14/24 transdermal patch #30 ea olanzapine 5 mg tablet 5 mg PO BID 30 days #60 tabs 01/14/24 quetiapine 50 mg tablet 50 mg PO BEDTIME 30 days #30 tabs 01/14/24 Mental Status Exam Mental Status Exam Narrative: Pt is alert and oriented; behavior is cooperative and calm; dressed in casual attire; mood is described as good ; eye contact appropriate; Speech is normal rate, volume and prosody and not pressured; thought process is organized and goal directed; Thought content is on discharge; denies SI/HI/VH/AH. Data Data Completed and Pending Completed studies during hospitalization [Text1]: 01/09/24 01/10/24 01/10/24 08:52 15:17 18:50 Estimat Average Glucose 100 Hemoglobin A1c % 5.1 Triglycerides 141 Cholesterol 195 LDL Cholesterol, Calc 113 H HDL Cholesterol 54 Vitamin B12 855 Folate 8.0 TSH 1.26 Free T4 1.11 T.pallidum Ab (EIA) Nonreactive Chlam trachomat DNA PCR NOT DETECTED Hepatitis A IgM Ab Nonreactive Hep Bs Antigen Negative Hep Bs Antibody REACTIVE Hep B Core Total Ab Nonreactive Hepatitis C Ab (EIA) Nonreactive HIV 1&2 Ab/P24 Ag 4thGn Nonreactive N.gonorrhoeae DNA (PCR) DETECTED A DS: Summary Hospital Course Hospital Course: Patient is a 38 year old female with hx of PTSD, unspecified mood d/o, cocaine use d/o and opioid use d/o who was brought to ER d/t disorganized and paranoid behavior. Per crisis report, pt presented disorganized, admitted to using cocaine the morning of evaluation. Patient was picked up by police d/t loitering around a hotel and presenting paranoid and disorganized. Patient reported some paranoid thinking. She did not report SI/HI. Psychiatric provider in ER believed pt to present with substance induced psychosis. Patient reported hearing and seeing children in her exam room when no one else can. During admission assessment, Pt presents calm and cooperative. Pt stated, I guess I came to the hospital because I wanted to rest and feel at ease. I've been smoking crack heavily for the past couple months because I was able to smoke as much as I wanted to. I still want to smoke crack. I'm not addicted to it. Sometimes the [employer] comes in me and I get lost and can't remember where I am. But psychiatric units make me sleep and remember . Pt reports using crack, heroin and marijuana often. Pt denies any other substance use currently; she reports hx of using meth for 20 years but don't do it anymore . Pt reports she is not interested in speaking to a monomer recovery operator or going to substance abuse program. Pt reports she does not have an outpatient therapist but would like a referral; she would also like to be sent to respite after discharge. Pt stated, I was never seeing children in the room. I just feel like I want to help everyone and treat them like kids. I don't think I have 100 kids . pt denies SI/HI/VH/AH. pt denies any hx of SIB/SA. During hospital course, CV 15 minute safety checks Continue home medications Decrease Klonopin to 0.5mg PO BID Increase Seroquel to 75mg PO bedtime Start: Seroquel 25mg PO BID PRN Zyprexa 5mg PO BID Referral to outpatient therapist Encourage sobriety discharge planning Pt reports feeling a lot better ; pt stated, I spoke to my sister, they had put a missing person report on me. I didn't realize I am loved . Pt reports she plans on going to [place] after here and trying to find my mother. My sister is going to buy me a bus ticket . Pt denies SI/HI/VH/AH. Pt continues to report she plans on using crack daily; pt stated, when I smoke crack, I feel like it opens up my mind and God allows me to see things . Pt requesting labs for STDs, HIV and Hepatitis. Continue current tx plan. Maintain Klonopin 0.5 twice daily as per team. Will adjust gabapentin to 800 mg 3 times per day. Also ceftriaxone 500 mg IM 1 time dose for gonorrhea. Pt reports feeling depressed that my klonopin was decreased ; T/W reminded pt of the conversation that was had on admission regarding her substance use and sedation. Pt reports not taking 2mg of klonopin a day makes me sad ; pt was educated regarding her medications. Pt remains focused on wanting dose increased. Pt requested to have hydroxyzine discontinued and started on Clonidine. pt denies SI/HI/VH/AH. Pt continues to report she plans on continuing to use crack when discharged. Plan to discharge pt on 3 day. DC hydroxyzine. Start: clonidine 0.1mg PO BID PRN Pt reports feeling good ; she reports feeling ready for discharge. Pt plans on following up with outpatient providers. Pt denies SI/HI/VH/AH. Time spent discussing smoking cessation with patient: 3 to 10 minutes Status at Discharge Cognitive/behavioral status at discharge: Patient was interviewed prior to discharge and found to be without SI or HI. Patient has insight and demonstrates good judgment in terms of wanting to pursue treatment. Patient has a safety plan that includes presenting to the closest ER or calling 911 if feeling unsafe. Functional status at discharge: independent ambulation Overall status at discharge: patient is back to baseline Time Spent with Patient Time attestation: Total time managing care of this patient today _30___ minutes. Time spent: Less than 30 minutes Discharge Plan Discharge Anticipated Discharge Date/Time: 01/15/24 10:00 Patient Disposition: [facility] Discharge Diagnosis: PTSD, opiate use d/o, cocaine use d/o Referrals: Therapy & Psychiatry [Other] - 1 Week (*Please follow up with your providers at the clinic listed above for follow-up care*) [facility] [Other] - 1 Week (VOICE MAIL LEFT AT OFFICE.) Physician,Unknown J [Primary Care Provider] - 1 Week Discharge Medications: New olanzapine 5 mg Tablet 5 mg PO BID 30 Days Qty: 60 0RF gabapentin 800 mg tablet 800 mg PO TID 30 Days Qty: 90 0RF nicotine 14 mg/24 hr Patch 24 Hour 14 mg transdermal DAILY 30 Days Qty: 30 0RF clonazepam 0.5 mg Tablet 0.5 mg PO BID 7 Days Qty: 14 1RF clonidine HCl 0.1 mg Tablet 0.1 mg PO BID PRN (Reason: Anxiety/Restlessness) 14 Days Qty: 28 0RF Protocol: Hold for SBP< HOLD for SBP < : 90 Continued buprenorphine-naloxone [Suboxone] 8-2 mg film 1 film sublingual BID Vitamin 27 mg iron- 800 mcg tablet 1 tab PO DAILY quetiapine 50 mg tablet 50 mg PO BEDTIME 30 Days Qty: 30 0RF Discontinued gabapentin 600 mg tablet 600 mg PO TID nicotine 14 mg/24 hr patch 24 hour 1 patch topical DAILY ondansetron HCl 4 mg tablet 4 mg PO Q8H PRN (Reason: nausea) clonazepam 1 mg tablet 1 mg PO TID PRN (Reason: anxiety) hydroxyzine pamoate 50 mg capsule 50 mg PO Q6H PRN (Reason: Anxiety) diphenhydramine HCl 25 mg capsule 25 mg PO BEDTIME PRN (Reason: itch) paroxetine HCl 40 mg tablet 40 mg PO DAILY naproxen 500 mg tablet 500 mg PO BID duloxetine 60 mg capsule,delayed release(DR/EC) 60 mg PO DAILY Discharge Orders: Discharge Order (Routine); Ordered 01/15/24 Ordered By: Latosha Garrido Diet: Regular diet Activity on Discharge: As tolerated Stand Alone Forms: Patient Portal Discharge page, Community Support Print Language: Danish Care Plan Goals: Maintain mood and safe behaviors Take medications as prescribed Continue to pursue sobriety Practice coping skills Continue with outpatient providers and reach out to them as needed Health Concerns: Mood stability and behaviors Sobriety Plan of Treatment: Follow up with your PCP, psychiatric provider and other outpatient providers regarding above concerns Take medications as prescribed Assessment: Patient was interviewed prior to discharge and found to be without SI or HI. Patient has insight and demonstrates good judgment in terms of wanting to pursue treatment. Patient has a safety plan that includes presenting to the closest ER or calling 911 if feeling unsafe. Discharge Date/Time: 01/15/24 10:40
[2024-01-15 09:37] VITALS: BP 113/65
[2024-01-15] MEDS: cloNIDine HCL 0.1 MG TABLET PO (09:37)
[2024-01-15] MEDS: QUEtiapine Fumarate 25 MG TABLET PO (09:37)
== END 2024-01-15 10:40 | disposition home or self-care (01) | DRG 751 ==
PROVIDERS: Admitting Provider Psychiatry & Neurology Psychiatry; Responsible Provider Registered Nurse; Visit Provider Psychiatry & Neurology Psychiatry
DX: F29 Unspecified psychosis not due to a substance or known physiological condition (principal); F11.20 Opioid dependence, uncomplicated; F90.9 Attention-deficit hyperactivity disorder, unspecified type; F17.210 Nicotine dependence, cigarettes, uncomplicated; Z71.6 Tobacco abuse counseling; F43.10 Post-traumatic stress disorder, unspecified; Z59.02 Unsheltered homelessness; Z79.899 Other long term (current) drug therapy
CPT/HCPCS: 0353U; 36415; 80061; 82607; 82746; 83036; 84439; 84443; 86704; 86706; 86709; 86780; 86803; 87340; 87389; J0696

== ENCOUNTER → 2024-01-08 23:21 | Outpatient (BNV) | payer OTHER, SELFPAY | PROVIDERS: Admitting Provider Psychiatry & Neurology Psychiatry; Responsible Provider Registered Nurse; Visit Provider Psychiatry & Neurology Psychiatry | DX: F29 Unspecified psychosis not due to a substance or known physiological condition (principal); F14.10 Cocaine abuse, uncomplicated; F43.11 Post-traumatic stress disorder, acute; F11.90 Opioid use, unspecified, uncomplicated | CPT/HCPCS: 90792; 99231; 99232; 99238 ==

== ENCOUNTER → 2024-01-08 23:21 | Outpatient (BNV) | payer OTHER, SELFPAY | PROVIDERS: Admitting Provider Psychiatry & Neurology Psychiatry; Responsible Provider Registered Nurse; Visit Provider Student in an Organized Health Care Education/Training Program | DX: Z02.2 Encounter for examination for admission to residential institution (principal) | CPT/HCPCS: 99429 ==